=== PATIENT | female | born 1985 | race Caucasian/White ===

== ENCOUNTER 2017-02-27 04:25 | Inpatient (IN) | payer OTHER ==
[2017-02-27] MEDS ORDERED: METHYLERGONOVINE 0.2 MG/ML 1 ML AMP IM PRN (04:50)
[2017-02-27] MEDS ORDERED: LIDOCAINE 1% (PF) 10 MG/ML (30 ML SDV) SQ PRN (04:50)
[2017-02-27] MEDS ORDERED: CARBOPROST TROMETHAMINE 250 MCG/ML 1 ML AMP IM PRN (04:50)
[2017-02-27] MEDS ORDERED: TERBUTALINE 1 MG/ML VIAL SQ PRN (04:50)
[2017-02-27] MEDS ORDERED: OXYTOCIN 10 UNIT/ML 1 ML VIAL IM PRN (04:50)
[2017-02-27 04:58] LABS: Basophils # (A) 0.1 k/uL (0-0.2); Basophils % (A) 0 %; CH 32.6; CHCM 34.2; Eosinophils # (A) 0.4 k/uL (0-0.7); Eosinophils % (A) 2 %; HCT 40.5 % (34.0-46.0); HDW 2.65; HGB 13.8 gm/dL (11.4-16.0); Luc # (Auto) 0.19; Luc % (Auto) 1; Lymphocytes # (A) 2.9 k/uL (1.0-4.8); Lymphocytes % (A) 19 %; MCH 32.6 pg (25.0-35.0); Mean Platelet Volume 8.1; Monocytes # (A) 0.8 k/uL (0-1.0); Monocytes % (A) 5 %; Neutrophils # (A) 11.1 k/uL (1.3-7.7); Neutrophils % (A) 72 %; RBC 4.22 m/uL (3.80-5.40); RDW 13.3 % (11.5-15.5); WBC 15.5 k/uL (3.8-10.6); WBC (Perox) 16.34
[2017-02-27] MEDS ORDERED: LACTATED RINGERS 1,000 ML IV SCH (05:00)
[2017-02-27] MEDS ORDERED: OXYTOCIN 20 UNITS/1000 ML NS 1,000 ML IV SCH ×2 (05:00→05:45)
[2017-02-27] MEDS ORDERED: ACETAMINOPHEN TAB 325 MG TAB PO PRN (05:42)
[2017-02-27] MEDS ORDERED: SIMETHICONE 80 MG CHEWABLE PO PRN (05:42)
[2017-02-27] MEDS ORDERED: HYDROCORTISONE 2.5% RECTAL CREAM 30 GM TUBE RECTAL PRN (05:42)
[2017-02-27] MEDS ORDERED: Acetaminophen-Codeine 300-30mg TAB PO PRN ×2 (05:42)
[2017-02-27] MEDS ORDERED: WITCH HAZEL 1 EACH MED..PAD TOPICAL PRN (05:42)
[2017-02-27] MEDS ORDERED: ZOLPIDEM 5 MG TAB PO PRN (05:42)
[2017-02-27] MEDS ORDERED: LANOLIN CREAM 5 GM TUBE TOPICAL PRN (05:42)
[2017-02-27] MEDS ORDERED: BENZOCAINE/MENTHOL SPRAY 1 GM/SPRAY AEROSOL TOPICAL PRN (05:42)
[2017-02-27] MEDS ORDERED: diphenhydrAMINE 50 MG/ML 1 ML VIAL IVP PRN ×2 (05:42)
[2017-02-27] MEDS ORDERED: diphenhydrAMINE 50 MG CAP PO PRN (05:42)
[2017-02-27] MEDS ORDERED: diphenhydrAMINE 25 MG CAP PO PRN (05:42)
--- NOTE | 2017-02-27 05:48 | P.HPOB ---
History of Present Illness H&P Date: 02/27/17 Chief Complaint: 38-5/7 weeks, active labor The patient is a 31-year-old 4 para 2011 admitted at 38-5/7 weeks as established by last menstrual period and confirmed by 10 week ultrasound. She is admitted in active labor at 8+ centimeters of dilation with all signs reassuring. Her has been uncomplicated though she carries a diagnosis of asthma but has required minimal maintenance therapy. She also is known to be Rh- and received RhoGAM at 28 weeks. Group B strep status is negative. Obstetrical history 4 para 2011 with 2 term vaginal deliveries without complications. She had one early miscarriage not requiring D&C. Current statistics are listed in history of present illness. EDC of 2016 was established by last menstrual period and confirmed by a 10 week ultrasound. Laboratory workup demonstrates a blood type of O- with a negative antibody screen. Rubella status is immune. All other laboratory workup was within normal limits. Early Glucola was normal and group B strep status is negative. Gynecologic history is unremarkable with no history of any infections to include STDs. Review of Systems Review of systems is confined to history of present illness. Past Medical History Past Medical History: Asthma History of Any Multi-Drug Resistant Organisms: None Reported Past Surgical History: Orthopedic Surgery Additional Past Surgical History / Comment(s): Right rotator cuff surgery, 2010. Tonsil and adenoidectomy as a child. [place] teeth extraction. Past Anesthesia/Blood Transfusion Reactions: No Reported Reaction Past Psychological History: No Psychological Hx Reported Smoking Status: Never smoker Past Alcohol Use History: None Reported Past Drug Use History: None Reported Medications and Allergies Home Medications Medication Instructions Recorded Confirmed Type Folic Acid 0.4 mg PO DAILY 09/30/13 02/27/17 History Zyt-Vmoi-Dgahp Acid 1 each PO DAILY 09/30/13 02/27/17 History [-U Capsule] Albuterol Sulfate [Proventil Hfa] 1 - 2 puff INHALATION Q6HR PRN 02/27/17 History Montelukast [Singulair] 10 mg PO DAILY 02/27/17 02/27/17 History Allergies Allergy/AdvReac Type Severity Reaction Status Date / Time No Known Allergies Allergy Verified 02/27/17 04:33 Exam - Vital Signs Vital signs: Intake and Output 02/26/17 02/26/1702/27/17 14:59 22:59 06:59 Other: Weight 96.615 kg Patient Weight 02/27/17 06:59 Weight 96.615 kg In general, this is a well-developed, well-nourished white female in significant discomfort well in active labor. Her heart has a regular rhythm and rate without murmur. Her lungs are clear to auscultation bilaterally in all [place]. Her abdomen is gravid, nondistended, has normal active bowel sounds , is soft, nontender, and without any palpable masses aside from uterine fundus. Her extremities are without any cyanosis, clubbing, or edema and are nontender to palpation bilaterally. Digital cervical examination at the time of admission demonstrated her cervix to be 8+ meters dilated, 90% effaced, with the vertex in presentation at -1 station. Results Result Diagrams: 02/27/17 04:45 Abnormal Lab Results - Last 24 Hours (Table) 02/27/17 Range/Units 04:45 WBC 15.5 H (3.8-10.6) k/uL Neutrophils # 11.1 H (1.3-7.7) k/uL Assessment and Plan (1) Active labor at term Current Visit: Yes Status: Acute Code(s): [id number] - SNOMED Code(s): 63718714 Plan: The patient is admitted for active management of labor. She will have close maternal and surveillance and expectant management will be practiced. An attempt will be made to place an epidural but there may not be an of time. She is otherwise a candidate for IV analgesia as well.
--- NOTE | 2017-02-27 05:50 | P.PROBDLV ---
Vaginal Delivery Note - . Vaginal Delivery Note: The patient is a 31-year-old 4 para 2011 admitted at 38-5/7 weeks by good dating parameters. She is admitted in active labor with all signs reassuring. Her has been uncomplicated and group B strep status is negative. She is known to be Rh- and received RhoGAM at 28 weeks. Upon admission, she was found to be 8+ centimeters dilated. She requested epidural analgesia but progressed quickly to complete and 0 to +1 station. Artificial rupture of membranes is carried out demonstrating clear fluid. She pushed over the course of 1 contraction to a normal spontaneous vaginal delivery of a viable 7 lbs. 2 oz. baby boy with Apgars of 8 at 1 minute and 9 at 5 minutes delivered in the right occiput anterior position. There was a loose nuchal cord 1 reduced following delivery of the . The placenta was delivered spontaneously, intact, and grossly normal with a grossly normal, centrally inserted three-vessel cord. Inspection of the perineum, vagina, and cervix demonstrated a very small first-degree left labial skin split which reapproximated well on its own was therefore not repaired. Estimated blood loss for the entire case was approximately 100 mL. There are no complications. All sponge, instrument, and needle counts were correct. The mother and are resting well in recovery.
[2017-02-27 05:55] VITALS: BMI 30.5
[2017-02-27] MEDS: IBUPROFEN 600 MG TAB PO PRN ×3 (05:59→17:36)
[2017-02-27] MEDS: SENNOSIDES-DOCUSATE SODIUM 1 EACH TAB PO SCH ×2 (09:42→21:11)
[2017-02-28] MEDS: IBUPROFEN 600 MG TAB PO PRN (08:20)
[2017-02-28] MEDS: SENNOSIDES-DOCUSATE SODIUM 1 EACH TAB PO SCH (08:21)
[2017-02-28 10:03] VITALS: BP 137/76; PULSE 72; RESP 16; TEMP 97.6
--- NOTE | 2017-02-28 11:28 | P.DS ---
Providers Date of admission: 02/27/17 04:43 Expected date of discharge: 02/28/17 Attending physician: Prasad Montalvo Primary care physician: Stated None - Discharge Diagnosis(es) (1) Active labor at term Current Visit: Yes Status: Acute (2) Normal spontaneous vaginal delivery Current Visit: Yes Status: Acute Hospital Course: The patient is a 31-year-old 4 para 201 to admitted at 38-5/7 weeks by good dating parameters. She is admitted in active labor with all signs reassuring. Her was uncomplicated though she is Rh- and received RhoGAM at 28 weeks. Group B strep status is negative. On labor and delivery, she made fairly rapid progress to complete and then pushed to a normal spontaneous vaginal delivery of a viable 7 lbs. 2 oz. baby boy with Apgars of 8 at 1 minute and 9 at 5 minutes. Her course was unremarkable with vital signs remained stable and her temperature was afebrile throughout. She was deemed stable for discharge by day 1 was discharged home to follow-up in the office in 6 weeks' time routinely. Discharge instructions included calling for any significantly increased bleeding or foul-smelling lochia, significantly increased fever abdominal pain, perineal complaints, breast complaints, or anything else that concerned her she was additionally instructed to have nothing in the vagina for at least 6 weeks time to include intercourse. She understood her instructions and agrees to follow up as noted above. Discharge medications included a prescription for a dual electric breast pump. She is otherwise to continue the use vitamins as she has opted to breast-feed. She additionally use xxdv-prn-qpfhoxx analgesic pain medications as needed. Maternal blood type is O- and cord blood was sent for evaluation for RhoGAM prior to discharge. Rubella status is immune. Procedures: #1. Artificial rupture of membranes #2. Normal spontaneous vaginal delivery Patient Condition at Discharge: Good Plan - Discharge Summary New Discharge Prescriptions: No Action Mow-Kzzy-Xodej Acid [-U Capsule] 1 each PO DAILY Folic Acid 0.4 mg PO DAILY Montelukast [Singulair] 10 mg PO DAILY Albuterol Sulfate [Proventil Hfa] 1 - 2 puff INHALATION Q6HR PRN PRN Reason: Bronchodilation Discharge Medication List Folic Acid 0.4 mg PO DAILY 09/30/13 [History] Vms-Nnsw-Mrumq Acid [-U Capsule] 1 each PO DAILY 09/30/13 [ History] Albuterol Sulfate [Proventil Hfa] 1 - 2 puff INHALATION Q6HR PRN 02/27/17 [ History] Montelukast [Singulair] 10 mg PO DAILY 02/27/17 [History] Follow up Appointment(s)/Referral(s): Prasad Montalvo MD [STAFF PHYSICIAN] - 6 Weeks Discharge Disposition: HOME SELF-CARE
--- NOTE | 2017-03-01 13:41 | P.MSEPDOC ---
Presenting Problems - Arrival Data Date of Arrival on Unit: 02/27/17 Time of Arrival on Unit: 04:25 Mode of Transport: Wheelchair - Complaint OB-Reason for Admission/Chief Complaint: Possible Onset of Labor Medical History - Information : 4 Para: 2 Term: 2 : 0 Abortions: Spontaneous or Elective: 1 Number of Living Children: 2 - Gestational Age Gestational Age by GIOVANY (wks/days): 38 Weeks and 5 Days Review of Systems - Review of Systems Constitutional: No problems Breast: No problems ENT: No problems Cardiovascular: No problems Respiratory: No problems Gastrointestinal: No problems Genitourinary: No problems Musculoskeletal: No problems Neurological: No problems Skin: No problems Vital Signs - Temperature Temperature: 97.6 F Temperature Source: Oral - Pulse Right Supine Brachial Pulse Rate: 72 Pulse Assessment Method: Automatic Cuff - Respirations Respiratory Rate: 16 Oxygen Delivery Method: Room Air - Blood Pressure Right Arm Supine Blood Pressure: 137/76 Blood Pressure Mean: 96 Blood Pressure Source: Automatic Cuff Medical Screen Scoring (Pre) - Cervical Exam Dilation: 4-7 cm = 2 Effacement: More than 50% = 2 Membranes: Intact - Uterine Contractions Frequency: > or = 36 weeks =2 Duration: > 40 seconds = 2 Intensity: Contraction palpated strong = 1 - Maternal Vital Signs Maternal Temperature: N/A Maternal Blood Pressure: N/A Signs of Preeclampsia: N/A Maternal Respirations: N/A - Pain Assessment Pain Location and Character: Medial, Abdomen Pain Scale Used: Numeric (1 - 10) Pain Intensity: 10 Pain Management Goal: 6 Pain Description: *Acute Pain Radiation Location: none Pain Frequency: Intermittent Pain Duration: 6 Pain Duration Units: Hours Pain Behavior: None Exhibited Effects of Pain: labor Pain Aggravating Factors: Contractions Non-Pharmacological Interventions: Distraction, Massage, Music Therapy, Position /Reposition - Maternal Trauma Maternal Trauma: N/A - Assessment Baseline FHR: 140 Heart Rate - NICHD Category: Category I (Normal) = 0 NST: Non-reactive = 3 Position: N/A - Total Score Total Score (Pre): 12 - Level of Risk Level of Risk: High (10+) Physician Notification (Pre) - Physician Notified Physician Notified Date: 02/27/17 Physician Notified Time: 04:40 Physician/Practitioner Notifed:: Selvin Spoke With: Selvin New Order Received: Yes - Notification Comment Comment: admit for labor Disposition - Disposition OB Disposition: Admit Transferred to:: suite 14 Discharge Date: 02/28/17 Discharge Time: 14:00 I agree with the RN Medical Screening Exam: Yes Risk & Benefit of care provided described in d/c instruction: Yes Diagnosis: ENCOUNTER FOR FULL-TERM UNCOMPLICATED DELIVERY
== END 2017-02-28 14:00 | disposition home or self-care (01) | DRG 560 ==
LOC: FBPOP 04:25 → 4FBP 04:43
PROVIDERS: ADMIT Obstetrics & Gynecology; ATTEND Obstetrics & Gynecology
PROC: 10E0XZZ Delivery of Products of Conception, External Approach (ICD-10-PCS; principal; 2017-02-27)
PROC: 10907ZC Drainage of Amniotic Fluid, Therapeutic from Products of Conception, Via Natural or Artificial Opening (ICD-10-PCS; 2017-02-27)
DX: O99.52 Diseases of the respiratory system complicating childbirth (principal); J45.909 Unspecified asthma, uncomplicated; O69.81X0 Labor and delivery complicated by cord around neck, without compression, not applicable or unspecified; O70.0 First degree perineal laceration during delivery; Z3A.38 38 weeks gestation of pregnancy; Z37.0 Single live birth; Z79.899 Other long term (current) drug therapy
CPT/HCPCS: 85025; 88307; 99213

== ENCOUNTER 2018-11-28 14:09 | Inpatient (IN) | payer OTHER ==
[2018-11-28] MEDS ORDERED: CARBOPROST TROMETHAMINE 250 MCG/ML 1 ML AMP IM PRN (16:35)
[2018-11-28] MEDS ORDERED: OXYTOCIN 10 UNIT/ML 1 ML VIAL IM PRN (16:35)
[2018-11-28] MEDS ORDERED: TERBUTALINE 1 MG/ML VIAL SQ PRN (16:35)
[2018-11-28] MEDS ORDERED: LIDOCAINE 0.5% (PF) 5 MG/ML (50 ML SDV) SQ PRN (16:35)
[2018-11-28] MEDS ORDERED: METHYLERGONOVINE 0.2 MG/ML 1 ML AMP IM PRN (16:35)
--- NOTE | 2018-11-28 16:42 | P.HPOB ---
History of Present Illness H&P Date: 11/28/18 Chief Complaint: Contractions at 39 weeks gestation This is a 33-year-old 5 para 3013 woman who presents at 39+ weeks gestation complaining of bloody mucous discharge and increased contraction activity over the last several hours. Upon presentation to labor and delivery triage her cervix was initially 3 cm dilated and she did progress to 4+ centimeters dilated. She has a history of rapid rapid precipitous deliveries. She is therefore admitted in early active labor. has been uncomplicated she has a history of asthma and migraines. Her obstetric history is significant for term spontaneous vaginal deliveries in 2001, 2013 and 2016. All uncomplicated. Laboratory data: Blood type O-, antibody screen negative, rubella immune, VDRL nonreactive, hepatitis B surface antigen negative, HIV negative, gonorrhea and clinic cultures negative, group B strep cultures negative, glucose tolerance testing within normal limits. Review of Systems All systems: negative Past Medical History Past Medical History: Asthma Additional Past Medical History / Comment(s): 3 History of Any Multi-Drug Resistant Organisms: None Reported Past Surgical History: Orthopedic Surgery Additional Past Surgical History / Comment(s): Right rotator cuff surgery, 2009. Tonsil and adenoidectomy as a child. [place] teeth extraction. Past Anesthesia/Blood Transfusion Reactions: No Reported Reaction Past Psychological History: No Psychological Hx Reported Smoking Status: Never smoker Past Alcohol Use History: None Reported Past Drug Use History: None Reported Medications and Allergies Home Medications Medication Instructions Recorded Confirmed Type Folic Acid 0.4 mg PO DAILY 09/30/13 02/27/17 History Xtu-Juba-Etxfc Acid 1 each PO DAILY 09/30/13 02/27/17 History [-U Capsule] Albuterol Sulfate [Proventil Hfa] 1 - 2 puff INHALATION Q6HR PRN 02/27/17 02/27/17 History Montelukast [Singulair] 10 mg PO DAILY 02/27/17 02/27/17 History Allergies Allergy/AdvReac Type Severity Reaction Status Date / Time No Known Allergies Allergy Verified 02/27/17 04:33 Exam Intake and Output 11/28/18 11/28/18 11/28/18 06:59 14:59 22:59 Other: Weight 97.976 kg This is a comfortable visibly gravid female. HEENT exam is unremarkable. Breathing is unlabored. Heart is a regular rate and rhythm. The abdomen is gravid with fundal height of approximately 40 cm visually. On cervical examination the cervix is 4 cm dilated 70% effaced and posterior, vertex in the -3 station. Artificial rupture of membranes on is undertaken and scant bloody fluid is noted. heart tones are category 1 by external monitoring and she is irregularly dandre every 5-10 minutes. Assessment and Plan (1) 39 weeks gestation of Current Visit: Yes Status: Acute Code(s): Z3A.39 - 39 WEEKS GESTATION OF SNOMED Code(s): 94244582 (2) Advanced maternal age (AMA) in Current Visit: Yes Status: Acute Code(s): RGC3531 - SNOMED Code(s): 576862085 (3) Rh negative, maternal Current Visit: Yes Status: Acute Code(s): O26.899 - OTH RELATED CONDITIONS, UNSPECIFIED TRIMESTER; Z67.91 - UNSPECIFIED BLOOD TYPE, RH NEGATIVE SNOMED Code(s): 727300667 (4) H/O rapid labor Current Visit: Yes Status: Acute Code(s): Z87.59 - PERSONAL HISTORY OF COMP OF PREG, CHLDBRTH AND THE PUERP SNOMED Code(s): 679780612 Plan: 33-year-old 5 para 3013 woman who is admitted in early labor. She is not regularly dandre however secondary to her history of precipitous delivery she will be admitted and artificial rupture of membranes is undertaken. Pitocin augmentation as indicated. She may have Stadol on upon request in active labor or an epidural anesthetic. heart tones are currently reassuring. Anticipate normal spontaneous vaginal delivery.
[2018-11-28] MEDS ORDERED: LACTATED RINGERS 1,000 ML IV SCH (16:45)
[2018-11-28] MEDS ORDERED: OXYTOCIN 30 UNITS/500 ML NS 30 UNIT in SALINE 1 500ML.BAG IV SCH (16:45)
[2018-11-28] MEDS ORDERED: BUTORPHANOL 1 MG/ML 1 ML VIAL IV PRN (17:22)
[2018-11-28 17:46] VITALS: BMI 31.8
[2018-11-28] MEDS ORDERED: ZOLPIDEM 5 MG TAB PO PRN (18:38)
[2018-11-28] MEDS ORDERED: LANOLIN CREAM 5 GM TUBE TOPICAL PRN (18:38)
[2018-11-28] MEDS ORDERED: diphenhydrAMINE 50 MG/ML 1 ML VIAL IVP PRN ×2 (18:38)
[2018-11-28] MEDS ORDERED: SIMETHICONE 80 MG CHEWABLE PO PRN (18:38)
[2018-11-28] MEDS ORDERED: HYDROCORTISONE 2.5% RECTAL CREAM 30 GM TUBE RECTAL PRN (18:38)
[2018-11-28] MEDS ORDERED: BENZOCAINE/MENTHOL SPRAY 1 GM/SPRAY AEROSOL TOPICAL PRN (18:38)
[2018-11-28] MEDS ORDERED: diphenhydrAMINE 50 MG CAP PO PRN (18:38)
[2018-11-28] MEDS ORDERED: diphenhydrAMINE 25 MG CAP PO PRN (18:38)
[2018-11-28] MEDS ORDERED: WITCH HAZEL 1 EACH MED..PAD TOPICAL PRN (18:38)
--- NOTE | 2018-11-28 18:38 | P.PROBDLV ---
Vaginal Delivery Note - . Vaginal Delivery Note: Findings: Male infant in the vertex left occiput anterior position with Apgars of 8 at 1 minute and 9 at 5 minutes weighing 8 lbs. 5 oz., 3770 g. Intact, three-vessel cord placenta. No lacerations. EBL approximately 200 mL's. Delivery summary: This is a 33-year-old 5 para 3013 woman who presented at 39 weeks gestation with irregular contractions and bloody show. Should a history of previous precipitous deliveries therefore she was admitted. Artificial rupture of membranes is undertaken and she did develop regular contraction pattern. She received Stadol for analgesia 1. She reached complete cervical dilation approximately 2 hours after rupture of membranes and commenced pushing with excellent maternal effort. heart tones were reassuring throughout the first and second stage of labor. With she was repositioned in the modified Andrey position. With additional effort the head delivered from the left occiput anterior position followed by the anterior posterior shoulders without difficulty. The rest the was delivered onto the field. The nose and mouth were bulb suctioned. The cord was clamped and cut. Apgars 8 at 1 minute and 9 at 5 minutes and weight 8 lbs. 5 oz. An intact, three-vessel cord placenta was expressed after a 5 minute third stage of labor. She received Pitocin following the third stage of labor. The uterus was massaged and was noted to be firm. The vagina and cervix and perineum were i nspected and no further lacerations were noted. The uterus was massaged and was firm at the level of the umbilicus. All counts were correct. Both mother and infant were doing well post delivery in the room.
[2018-11-28] MEDS ORDERED: OXYTOCIN 20 UNITS/1000 ML NS 1,000 ML IV SCH (18:45)
[2018-11-28 18:51] LABS: Basophils % (A) 0 %; Eosinophils # (A) 0.1 k/uL (0-0.7); Eosinophils % (A) 1 %; HCT 36.2 % (34.0-46.0); HGB 12.4 gm/dL (11.4-16.0); Lymphocytes # (A) 1.9 k/uL (1.0-4.8); Lymphocytes % (A) 15 %; MCH 33.3 pg (25.0-35.0); MCHC 34.3 g/dL (31.0-37.0); MCV 97.2 fL (80.0-100.0); Mean Platelet Volume 8.4; Monocytes # (A) 0.6 k/uL (0-1.0); Monocytes % (A) 5 %; Neutrophils # (A) 9.5 k/uL (1.3-7.7); Neutrophils % (A) 77 %; Platelet Count 279 k/uL (150-450); RBC 3.72 m/uL (3.80-5.40); RDW 14.2 % (11.5-15.5); WBC 12.3 k/uL (3.8-10.6)
[2018-11-28] MEDS: IBUPROFEN 600 MG TAB PO PRN (19:15)
[2018-11-28] MEDS ORDERED: Rhogam IMMUNE GLOBULIN 1,500 UNIT/1 ML IM ONE (23:37)
[2018-11-28] MEDS: SENNOSIDES-DOCUSATE SODIUM 1 EACH TAB PO SCH (23:49)
[2018-11-29] MEDS: ACETAMINOPHEN TAB 325 MG TAB PO PRN ×2 (00:42→09:10)
[2018-11-29] MEDS: IBUPROFEN 600 MG TAB PO PRN ×3 (05:18→20:16)
[2018-11-29 07:28] LABS: Basophils # (A) 0.1 k/uL (0-0.2); Basophils % (A) 0 %; Eosinophils # (A) 0.2 k/uL (0-0.7); Eosinophils % (A) 1 %; HCT 33.4 % (34.0-46.0); HGB 11.5 gm/dL (11.4-16.0); Lymphocytes # (A) 2.6 k/uL (1.0-4.8); Lymphocytes % (A) 18 %; MCH 33.7 pg (25.0-35.0); MCHC 34.6 g/dL (31.0-37.0); MCV 97.5 fL (80.0-100.0); Mean Platelet Volume 8.1; Monocytes # (A) 0.9 k/uL (0-1.0); Monocytes % (A) 6 %; Neutrophils # (A) 10.6 k/uL (1.3-7.7); Neutrophils % (A) 73 %; Platelet Count 249 k/uL (150-450); RBC 3.42 m/uL (3.80-5.40); WBC 14.6 k/uL (3.8-10.6)
[2018-11-29] MEDS: SENNOSIDES-DOCUSATE SODIUM 1 EACH TAB PO SCH (09:10)
--- NOTE | 2018-11-29 11:16 | P.DS ---
Providers Date of admission: 11/28/18 15:46 Expected date of discharge: 11/29/18 Attending physician: Jaclyn Pruitt Primary care physician: Stated None - Discharge Diagnosis(es) (1) 39 weeks gestation of Current Visit: Yes Status: Acute (2) Advanced maternal age (AMA) in Current Visit: Yes Status: Acute (3) Rh negative, maternal Current Visit: Yes Status: Acute (4) H/O rapid labor Current Visit: Yes Status: Acute (5) Normal spontaneous vaginal delivery Current Visit: No Status: Acute Hospital Course: This is a 33-year-old 5 now para 4 woman who was admitted at 39+ weeks gestation in spontaneous active labor. She had a history of rapid deliveries. She underwent artificial rupture of membranes and did receive Stadol analgesia. She went on to have an unremarkable delivery of a liveborn male infant over an intact perineum weighing 8 lbs. 5 oz. with Apgars of 9 at 1 minute and 9 at 5 minutes. Her course was entirely unremarkable. By day #1 she was ambulating and voiding without difficulty, vital signs were stable, she is breast-feeding successfully and tolerating a general diet. She received for discharge home with routine instructions for care and follow-up. Procedures: Patient Condition at Discharge: Good Plan - Discharge Summary New Discharge Prescriptions: No Action Bdg-Jcyu-Htieo Acid [-U Capsule] 1 each PO DAILY Folic Acid 0.4 mg PO DAILY Montelukast [Singulair] 10 mg PO DAILY Albuterol Sulfate [Proventil Hfa] 1 - 2 puff INHALATION Q6HR PRN PRN Reason: Bronchodilation Discharge Medication List Folic Acid 0.4 mg PO DAILY 09/30/13 [History] Fhc-Clxd-Zpgnh Acid [-U Capsule] 1 each PO DAILY 09/30/13 [History] Albuterol Sulfate [Proventil Hfa] 1 - 2 puff INHALATION Q6HR PRN 02/27/17 [History] Montelukast [Singulair] 10 mg PO DAILY 02/27/17 [History] Follow up Appointment(s)/Referral(s): Prasad Montalvo MD [STAFF PHYSICIAN] - 6 Weeks Activity/Diet/Wound Care/Special Instructions: Follow-up in the office in 6 weeks . Call with any concerning signs or symptoms including heavy vaginal bleeding, severe abdominal pain, fever greater than 101, swelling or redness of the lower extremities, foul vaginal discharge, or signs of depression. Nothing in the vagina for 6 weeks after delivery, specifically no intercourse. May use fjhs-eji-sdyvrae ibuprofen and/or Tylenol extra strength as needed for pain. May use xige-hng-lqgpsqn stool softener once or twice a day as needed. Discharge Disposition: HOME SELF-CARE
[2018-11-29 15:35] VITALS: BP 120/74; PULSE 70; RESP 16; TEMP 98.3
== END 2018-11-29 20:30 | disposition home or self-care (01) | DRG 807 ==
LOC: FBPOP 14:09 → 4FBP 15:46
PROVIDERS: ADMIT Obstetrics & Gynecology; ATTEND Obstetrics & Gynecology
PROC: 10E0XZZ Delivery of Products of Conception, External Approach (ICD-10-PCS; principal; 2018-11-28)
DX: O99.52 Diseases of the respiratory system complicating childbirth (principal); Z37.0 Single live birth; O99.354 Diseases of the nervous system complicating childbirth; J45.909 Unspecified asthma, uncomplicated; G43.909 Migraine, unspecified, not intractable, without status migrainosus; O26.893 Other specified pregnancy related conditions, third trimester; Z67.41 Type O blood, Rh negative; Z3A.39 39 weeks gestation of pregnancy; Z79.899 Other long term (current) drug therapy
CPT/HCPCS: 85025; 85461; 86850; 86870; 86880; 86900; 86901

== ENCOUNTER → 2020-05-23 | Outpatient (CLI) | payer OTHER ==
--- NOTE | 2020-05-23 10:03 | CT ---
EXAMINATION TYPE: CT abdomen pelvis wo con DATE OF EXAM: 05/23/2020 COMPARISON: HISTORY: Abdominal pain unspecified CT DLP: 880 mGycm Automated exposure control for dose reduction was used. TECHNIQUE: Helical acquisition of images from the lung bases through the pelvis. FINDINGS: Lack of contrast could compromise sensitivity. LUNG BASES: No significant abnormality is appreciated. AORTA: No significant abnormality is appreciated. LIVER/GB: No significant abnormality is appreciated. PANCREAS: No significant abnormality is seen. SPLEEN: No significant abnormality is seen. ADRENALS: No significant abnormality is seen. KIDNEYS: No significant abnormality is seen. REPRODUCTIVE ORGANS: Intrauterine contraceptive device is in place, tampon is in place.. URINARY BLADDER: No significant abnormality is seen. BOWEL: No significant abnormality is seen. The appendix is normal in its visualized portions. FREE AIR: No Free Air is visible. ASCITES: None visible. PELVIC ADENOPATHY: None visualized. RETROPERITONEAL ADENOPATHY: No Retroperitoneal Adenopathy visible. OSSEOUS STRUCTURES: Degenerative disc changes are present L4-5, loss of disc height with vacuum phen omenon. There is associated spondylosis. IMPRESSION: NONCONTRAST EXAM. NORMAL APPENDIX.
== END | disposition home or self-care (01) ==
LOC: RADCTMAIN 06:39
PROVIDERS: ATTEND Family Medicine
DX: R10.9 Unspecified abdominal pain (principal)
CPT/HCPCS: 74176

== ENCOUNTER → 2020-05-31 | Outpatient (CLI) | payer OTHER ==
--- NOTE | 2020-05-31 14:06 | US ---
EXAMINATION TYPE: US abdomen comp/pelvis limited DATE OF EXAM: 05/31/2020 COMPARISON: NONE CLINICAL HISTORY: R10.9 Abdominal pain Unspecified. Patient states umbilicus pain extending to left and right EXAM MEASUREMENTS: Liver Length: 14.2 cm Gallbladder Wall: 0.1 cm CBD: 0.3 cm Spleen: 11.7 cm Right Kidney: 10.6 cm Left Kidney: cm Pancreas: portions visualized wnl, partially obscured by overlying bowel Liver: wnl Gallbladder: wnl Evidence for sonographic Gillette's sign: no CBD: wnl Spleen: Nonspecific heterogeneity of the splenic tissue. Right Kidney: Inferior pole obscured by bowel gas Left Kidney: Inferior pole obscured by bowel gas Upper IVC: wnl Abd Aorta: Partially obscured by overlying bowel gas Bladder: wnl The liver is homogenous. The intrahepatic portion of the IVC and proximal abdominal aorta are within normal limits. There is no evidence of cholelithiasis. Common bile duct is unremarkable. The visu alized portions of the pancreas are homogenous. The spleen is unremarkable. Kidneys are symmetric a nd free of hydronephrosis. No renal lesions are seen. IMPRESSION: No significant abnormality seen.
== END | disposition home or self-care (01) ==
LOC: RADUSWWP 12:56
PROVIDERS: ATTEND Family Medicine
DX: R10.9 Unspecified abdominal pain (principal)
CPT/HCPCS: 76700; 76857

== ENCOUNTER → 2020-10-18 | Outpatient (CLI) | payer OTHER ==
--- NOTE | 2020-10-19 10:52 | XR ---
EXAMINATION TYPE: XR hand complete LT, XR wrist complete LT DATE OF EXAM: 10/18/2020 CLINICAL HISTORY: Generalized pain left hand TECHNIQUE: Frontal, lateral and oblique images of the left hand are obtained. COMPARISON: None. FINDINGS: There is no acute fracture/dislocation evident in the left hand. The joint spaces in the l eft hand appear within normal limits. There are a few subchondral cystic structures at the carpals an d distal portion of the proximal phalanx of the first digit. The overlying soft tissue appears unrema rkable. Left wrist: The distal radius and ulna are intact. The carpals are in alignment. Prominent subchondra l cyst at the scaphoid. A few other tiny subchondral cystic structures are seen within the carpals. S oft tissues are unremarkable. IMPRESSION: There is no acute fracture or dislocation in the left hand or wrist.
== END | disposition home or self-care (01) ==
LOC: RADXRMAIN 16:11
PROVIDERS: ATTEND Nurse Practitioner Family
DX: M85.642 Other cyst of bone, left hand (principal)